=== PATIENT | male | born 1985 | race Caucasian/White ===

== ENCOUNTER 2016-07-29 08:50 | Emergency (ER) | payer OTHER ==
--- NOTE | 2016-07-29 10:22 | DIAGNOSTIC IMAGING REPORT ---
PROCEDURE: CT HEAD WITHOUT CONTRAST INDICATION: SEIZURE TECHNIQUE: Axial CT images were acquired through the head. Coronal and sagittal reformations were created. COMPARISON: None. FINDINGS: No intracranial hemorrhage or extraaxial fluid collections. Ventricles are normal in size, shape and position. There is no mass, mass effect or midline shift. The snyder-white matter differentiation is normal. There is no edema. The calvarium is intact. The paranasal sinuses and mastoid air cells are normally aerated. The extracranial soft tissues and orbits are normal. IMPRESSION: 1. No CT evidence of acute intracranial process. 2. Findings discussed with Gregg at 10:[address] scans at this facility use dose modulation, iterative reconstruction, and/or weight-based dosing when appropriate to reduce radiation dose to as low as reasonably achievable.
--- NOTE | 2016-07-29 10:42 | ED ORDER SUMMARY ---
..... Patient: KRISTI KLINE OrderSheet [facility] VisitID: [id number] [place] [address] 31y, M Registration Date/Time: 07/29/2016 ORDER SHEET Weight: 81.6 kg (stated) Allergies: None GENERAL ORDERS: Airway Traffic Controller (Continuous) (08:55 07/29/2016 JBoardley R.N. per protocol) (8:55 JBoardley R.N.) CBC w Diff Urgent (08:55 07/29/2016 JBoardley R.N. per protocol) (Ack 8:56 KHoerner) (9:10 JBoardley R.N.) BMP Urgent (08:55 07/29/2016 JBoardley R.N. per protocol) (Ack 8:56 KHoerner) (9:10 JBoardley R.N.) (Cancelled: Other9:17 [place] WOODWARD) UA-Culture if indicated Urgent (08:55 07/29/2016 JBoardley R.N. per protocol) (Ack 8:56 KHoerner) (9:44 LNations ER Tech1) Urine Drug Screen Urgent (08:55 07/29/2016 JBoardley R.N. per protocol) (Ack 8:56 KHoerner) (9:44 LNations ER Tech1) POC Glucose (08:55 07/29/2016 JBoardley R.N. per protocol) (Ack 8:56 KHoerner) (9:01 JBoardley R.N.) EKG - ER Stat (08:55 07/29/2016 JBoardley R.N. per protocol) (Ack 8:56 KHoerner) (9:01 JBoardley R.N.) CMP Urgent (09:07/29/2016 [place] WOODWARD) (Ack 9:18 KHoerner) (9:56 JBoardley R.N.) CT Head wo Cont Urgent (09:18 07/29/2016 [place] WOODWARD) (Ack 9:20 KHoerner) (9:56 JBoardley R.N.) Amylase Urgent (09:18 07/29/2016 [place] WOODWARD) (Ack 9:20 KHoerner) (9:56 JBoardley R.N.) Lipase Urgent (09:18 07/29/2016 [place] WOODWARD) (Ack 9:20 SINCEREoerner) (9:56 JBoardley R.N.) CPK Urgent (09:18 07/29/2016 [place] WOODWARD) (Ack 9:20 SINCEREoerner) (9:56 JBoardley R.N.) Troponin-I Urgent (09:18 07/29/2016 [place] WOODWARD) (Ack 9:20 KHoerner) (9:56 JBoardley R.N.) Seizure Precautions (09:18 07/29/2016 [place] WOODWARD) (Ack 9:21 JBoardley R.N.) (9:29 JBoardley R.N.) Ethyl Alcohol Urgent (09:50 07/29/2016 [place] WOODWARD) (Ack 9:51 KHoerner) (9:56 JBoardley R.N.) MEDICATION ORDERS: Keppra PO 500 mg (NOW) (10:39 07/29/2016 [place] WOODWARD) (Ack 10:40 JBoardley R.N.) (10:43 JBoardley R.N.) IV FLUIDS: IV Saline Lock (08:55 07/29/2016 JBoardley R.N. per protocol) (Ack 9:01 JBoardley R.N.) (9:10 JBoardley R.N.) IV NS : initial bolus none -, then 1000 mL/hr for X1 (NOW) (09:10 07/29/2016 JBoardley R.N. per protocol) (9:11 JBoardley R.N.) ORDER SHEET NOTES: [Electronically signed by Omid Alvarez R.N. (10:57 07/29/2016)] [Electronically signed by Dago Escobedo MD (12:13 07/29/2016)] [Electronically locked/signed by Omid Alvarez R.N. (10:57 07/29/2016)]
--- NOTE | 2016-07-29 10:42 | ED NURSING NOTES ---
Clinical Report - Nurses [facility] [address] [place] [address] 07/29/2016 8:51 [facility]: [id number] TRIAGE Triage time 08:49. Acuity: LEVEL 3. Chief Complaint: DECREASED RESPONSIVENESS. 08:51 07/29/16. 08:51 07/29/16. Alert. No acute distress. SEPSIS SCREEN: Sepsis Screen. Negative (no infection suspected/documented). LAKISHA COMA SCORE: Drew Coma Scale: 15- eyes open spontaneously (4); best verbal response- oriented x 4 (5); best motor response- obeys commands (6). --08:53 Omid Alvarez R.N. 08:48 07/29/16. BP: 150/77. HR: 114. RR: 16. O2 saturation: 100% on room air. Temp: 98 F (oral). Pain level now: 0/10. --08:53 Omid Alvarez R.N. ( EMS states that pt has possible 4 min seizure witnessed by girlfriend and son. History of seizure when pt was a child.). --08:57 Omid Alvarez R.N. ( Pt states that pt took two of sons concerta to help stay awake for playing video games.). --09:16 Omid Alvarez R.N. Weight: 81.6 kg stated. Height/Length: 70 inches Per Patient. BMI: 25.8. --08:50 Omid Alvarez R.N. Medications None. --08:52 Omid Alvarez R.N. Medication/allergy information source: the patient. --08:53 Omid Alvarez R.N. Allergies None. --08:52 Omid Alvarez R.N. History Primary physician (NONE). 08:51 07/29/16. This started today 30 min ago. Treatment FARM OPERATOR: None. PAST MEDICAL HX: Immunizations not up to date. SOCIAL HX: Current every day light tobacco smoker (cigarette)- less than 1/2 a pack per day. Regular alcohol use; consumes two beers a day. ("Couple beers a day"). History of heavy drug use: marijuana. Recently used drugs yesterday. No infectious disease exposure. ABUSE ASSESSMENT: No report of abuse. FALL RISK ASSESSMENT: Fall risk assessment completed. No fall risk identified. NUTRITIONAL RISK ASSESSMENT: The nutritional risk assessment revealed no deficiencies. FUNCTIONAL ASSESSMENT: Functional assessment: no impairments noted. LEARNING NEEDS ASSESSMENT: The learning needs assessment revealed no barriers. SKIN INTEGRITY ASSESSMENT: Skin integrity risk assessment completed. No skin integrity risk identified. --08:53 Omid Alvarez R.N. Treatment FARM OPERATOR: See EMS report. BP: 130/90. HR: 136. RR: 18. --08:57 Omid Alvarez R.N. PROBLEMS: Seizure. --08:52 Omid Alvarez R.N. Nephrolithiasis. --08:52 Omid Alvarez R.N. ADDITIONAL SURGERIES: Lithotripsy. --08:53 Omid Alvarez R.N. Assessment 08:51 07/29/16. --08:53 Omid Alvarez R.N. Interventions 08:51 07/29/16. 08:51 07/29/16. ID and allergy band on patient. To treatment room. --08:53 Omid Alvarez R.N. PHYSICAL ASSESSMENT 08:53 07/29/16. To room via stretcher. Baseline functional status: usually alert, oriented x4 and cooperative. GENERAL / NEURO / PSYCH: Awake. Oriented X 4. Alert. Appears in no acute distress. Speech normal. Mood/affect normal. Moves all extremities equally. No motor deficit. No sensory deficit. RESPIRATORY: Respirations not labored. CVS: Capillary refill less than 2 seconds. SKIN: Skin is warm and dry. --08:53 Omid Alvarez R.N. NURSING PROGRESS NOTES 08:54 07/29/16. The plan of care for this patient has been created. steel plate caulker, pulse oximeter and NIBP monitor placed on patient; monitor alarms on. Patient gowned. Head of bed elevated. Reassurance given. Seizure precautions initiated: side rails up x4 and padded, suction and O2 at bedside, patient in view of nurse's station and call malik in reach. Two patient identifiers checked. Call light placed in reach. Side rails up x 2. Bed placed in lowest position. Brakes of bed on. Brakes of chair on. --08:54 Omid Alvarez R.N. 08:54 07/29/16. Patient ready for evaluation- chart flagged and notification provided. --08:54 Omid Alvarez R.N. 08:55 07/29/16. Cardiac rhythm: sinus tachycardia; (118). --08:55 Omid Alvarez R.N. 09:00 07/29/2016 Site #1 started via IV in the left antecubital space with an 20g angiocath, with aseptic technique and good blood return; one attempt. Blood drawn: rainbow set. Labeled in the presence of the patient and sent to the lab. Saline lock flushed with 10 mL saline. --09:10 Omid Alvarez R.N. 09:01 07/29/16. Finger stick glucose: 134; ordered; performed by nurse; result shown to the ED physician. --09:01 Omid Alvarez R.N. 09:04 07/29/16. EKG time: (906). EKG was ordered, performed by a tech and shown to the ED physician. --09:04 Omid Alvarez R.N. 09:06 07/29/2016 Started bag #1 1000 mL IV Fluids IV NS (Saline); at 1000 mL/hr over 1 hour(s) via site #1. Allergies verified and confirmed 5 rights. IV patency established. IV site checked: no pain, redness, or swelling. IV flushed thoroughly pre- and post-medication administration. Completed per protocol. --09:11 Omid Alvarez R.N. ( seizure pads applied to bed.). --09:27 Meggan Mckinnon ER Tech1 Patient transported to CT by stretcher. --09:27 Meggan Mckinnon ER Tech1 09:28 07/29/16. Patient transported to CT by stretcher with tech. --09:28 Omid Alvarez R.N. 09:28 07/29/16. ( Pt is unable to provide urine). --09:29 Omid Alvarez R.N. late entry -09:45. Patient returned from CT by stretcher with [employer]. --09:57 Omid Alvarez R.N. 09:57 07/29/16. Cardiac rhythm: normal sinus rhythm; (83). --09:57 Omid Alvarez R.N. 09:57 07/29/16. BP: 124/80. HR: 94. RR: 12. O2 saturation: 100% on room air. --09:58 Omid Alvarez R.N. 09:58 07/29/16. Cardiac rhythm: normal sinus rhythm. --09:58 Omid Alvarez R.N. 10:35 07/29/16. BP: 126/82. HR: 87. RR: 14. O2 saturation: 100% on room air. --10:35 Omid Alvarez R.N. 10:23 07/29/2016 IV Fluids IV NS Discontinued: bag #1 infused upon discharge. Total amount infused: 1000 mL. --10:48 Omid Alvarez R.N. 10:23 07/29/16. Patient and family informed about reason for wait and about plan of care. --10:23 Omid Alvarez R.N. 10:23 07/29/16. Patient waiting for lab and CT results. --10:23 Omid Alvarez R.N. 10:24 07/29/16. Cardiac rhythm: normal sinus rhythm; (80). --10:24 Omid Alvarez R.N. 10:35 07/29/16. --10:35 Omid Alvarez R.N. 10:35 07/29/16. Cardiac rhythm: normal sinus rhythm. --10:35 Omid Alvarez R.N. 10:38 07/29/2016 Keppra (LevETIRAcetam) PO 500 mg given. Allergies verified and confirmed 5 rights. --10:43 Omid Alvarez R.N. DISPOSITION / DISCHARGE 10:42 07/29/2016 Site #1 removed upon discharge. Catheter intact. Bandage applied. --10:47 Omid Alvarez R.N. 10:47 07/29/16. Condition at departure: improved. The goals identified in the patient's plan of care were met. No learning barriers present. Discharge instructions provided and reviewed with the patient. Reviewed warnings. Reviewed medication(s). Treatments reviewed. Patient and sap architect verbalized understanding. Written instructions provided in Irish. The patient was discharged by the physician. He was discharged home and accompanied by family. He left the Emergency Department ambulatory and via private vehicle. Family member driving. FALL RISK ASSESSMENT: Fall risk assessment completed. No fall risk identified. --10:47 Omid Alvarez R.N. 10:46 07/29/16. BP: 123/78. HR: 81. RR: 14. O2 saturation: 99% on room air. Temp: 98.1 F (oral). --10:47 Omid Alvarez R.N. 10:47 07/29/16. Departure time: 10:47. --10:47 Omid Alvarez R.N. Locked/Released at 07/29/2016 10:57 by Omid Alvarez R.N.
--- NOTE | 2016-07-29 10:42 | ED ORDER SUMMARY ---
..... Patient: KRISTI KLINE OrderSheet [facility] VisitID: [id number] [place] [address] 31y, M Registration Date/Time: 07/29/2016 ORDER SHEET Weight: 81.6 kg (stated) Allergies: None GENERAL ORDERS: Car Sales Representative (Continuous) (08:55 07/29/2016 JBoardley R.N. per protocol) (8:55 JBoardley R.N.) CBC w Diff Urgent (08:55 07/29/2016 JBoardley R.N. per protocol) (Ack 8:56 KHoerner) (9:10 JBoardley R.N.) BMP Urgent (08:55 07/29/2016 JBoardley R.N. per protocol) (Ack 8:56 KHoerner) (9:10 JBoardley R.N.) (Cancelled: Other9:17 [place] WOODWARD) UA-Culture if indicated Urgent (08:55 07/29/2016 JBoardley R.N. per protocol) (Ack 8:56 KHoerner) (9:44 LNations ER Tech1) Urine Drug Screen Urgent (08:55 07/29/2016 JBoardley R.N. per protocol) (Ack 8:56 KHoerner) (9:44 LNations ER Tech1) POC Glucose (08:55 07/29/2016 JBoardley R.N. per protocol) (Ack 8:56 KHoerner) (9:01 JBoardley R.N.) EKG - ER Stat (08:55 07/29/2016 JBoardley R.N. per protocol) (Ack 8:56 KHoerner) (9:01 JBoardley R.N.) CMP Urgent (09:07/29/2016 [place] WOODWARD) (Ack 9:18 KHoerner) (9:56 JBoardley R.N.) CT Head wo Cont Urgent (09:18 07/29/2016 [place] WOODWARD) (Ack 9:20 KHoerner) (9:56 JBoardley R.N.) Amylase Urgent (09:18 07/29/2016 [place] WOODWARD) (Ack 9:20 KHoerner) (9:56 JBoardley R.N.) Lipase Urgent (09:18 07/29/2016 [place] WOODWARD) (Ack 9:20 SINCEREoerner) (9:56 JBoardley R.N.) CPK Urgent (09:18 07/29/2016 [place] WOODWARD) (Ack 9:20 SINCEREoerner) (9:56 JBoardley R.N.) Troponin-I Urgent (09:18 07/29/2016 [place] WOODWARD) (Ack 9:20 KHoerner) (9:56 JBoardley R.N.) Seizure Precautions (09:18 07/29/2016 [place] WOODWARD) (Ack 9:21 JBoardley R.N.) (9:29 JBoardley R.N.) Ethyl Alcohol Urgent (09:50 07/29/2016 [place] WOODWARD) (Ack 9:51 KHoerner) (9:56 JBoardley R.N.) MEDICATION ORDERS: Keppra PO 500 mg (NOW) (10:39 07/29/2016 [place] WOODWARD) (Ack 10:40 JBoardley R.N.) (10:43 JBoardley R.N.) IV FLUIDS: IV Saline Lock (08:55 07/29/2016 JBoardley R.N. per protocol) (Ack 9:01 JBoardley R.N.) (9:10 JBoardley R.N.) IV NS : initial bolus none -, then 1000 mL/hr for X1 (NOW) (09:10 07/29/2016 JBoardley R.N. per protocol) (9:11 JBoardley R.N.) ORDER SHEET NOTES: [Electronically signed by Omid Alvarez R.N. (10:57 07/29/2016)] [Electronically signed by Dago Escobedo MD (12:13 07/29/2016)] [Electronically locked/signed by Omid Alvarez R.N. (10:57 07/29/2016)]
--- NOTE | 2016-07-29 10:42 | ED CLINICAL REPORT ---
Clinical Report - Physicians/Mid Levels [facility] [address] [place] [address] 07/29/2016 8:51 Patient: KRISTI KLINE Time Seen: 09:14. Arrived- By private vehicle. Historian- patient. HISTORY OF PRESENT ILLNESS Chief Complaint: SINGLE SEIZURE. This occurred today. The patient has recovered. Seizure was witnessed. Seizure activity lasted minutes (for about 4 minutes). Location of injuries- tongue. He lost consciousness. Generalized motor activity observed. No incontinence or apnea noted. No post-ictal symptoms. There has been recent sleep deprivation. He has had light alcohol consumption recently (beer). Last drink was less than 24 hours ago. Patient reported to nursing staff that last night he took some of his son's Concerta to help him stay awake while he was "ester.". Similar symptoms previously: Once. REVIEW OF SYSTEMS No chills, fever, sweats, calf pain or chest pain. No cough, difficulty breathing, pedal edema, palpitations or abdominal pain. No black stools, bloody stools, constipation, diarrhea or nausea. No vomiting, urinary problems, headache or numbness. All systems otherwise negative, except as recorded above. PAST HISTORY ( PCP - [facility]). Problems: Nephrolithiasis. Seizure. Abrasion(s). Oral Laceration. Contusion. Sprain. Additional Surgeries: Kidney stone extraction. Lithotripsy. Medications: None. Allergies: None. SOCIAL HISTORY Current every day light tobacco smoker (cigarette)- less than 1/2 a pack per day. Regular alcohol use; consumes two beers a day. History of heavy drug use: marijuana. Recently used drugs yesterday. The patient lives with spouse. FAMILY HISTORY Family medical history is unknown due to adoption. ADDITIONAL NOTES The nursing notes have been reviewed. PHYSICAL EXAM Vital Signs: 07/29/2016 08:48 BP: 150/77. HR: 114. RR: 16. O2 saturation: 100%. Temp: 98 F. Pain level now: 0/10. Have been reviewed. Appearance: Alert. Eyes: Pupils equal, round and reactive to light. No nystagmus. ENT: Tongue: multiple small abrasions of the right and left side of the tongue. Moist mucous membranes. Pharynx normal. Neck: Normal inspection. Neck supple. CVS: Tachycardia. Heart sounds normal. Respiratory: No respiratory distress. Breath sounds normal. Abdomen: Soft and nontender. No organomegaly. Back: Normal inspection. Skin: Skin warm and dry. Normal skin color. No rash. Normal skin turgor. Extremities: Extremities exhibit normal ROM. No calf tenderness. No lower extremity edema. Neuro: Alert. Oriented X 3. Mood/affect normal. Speech normal. Cranial nerves normal (as tested). No cerebellar findings. No motor deficit. No sensory deficit. LABS, X-RAYS, AND EKG EKG: Rate: 109. Incomplete RBBB. Prior EKG unavailable. The study has been independently viewed by me. CT Head: Normal study. The study was interpreted contemporaneously by me and discussed with the radiologist. Laboratory Tests: UA-Culture if indicated: (GRACIA: 07/29/2016 09:40) ( [facility] 07/29/2016 10:08) Final results Test Result Flag Units (Reference) URINE COLOR YELLOW URINE APPEARANCE CLEAR URINE GLUCOSE NEGATIVE (NEGATIVE) URINE BILIRUBIN NEGATIVE (NEGATIVE) URINE KETONE TRACE (NEGATIVE) URINE SPECIFIC GRAVITY >= 1.030 (1.010-1.030) URINE PH 6.0 (5.0-8.0) URINE PROTEIN 2+ (NEGATIVE) URINE UROBILINOGEN 1.0 EU/dL (0.2-1.0) URINE NITRITE NEGATIVE (NEGATIVE) URINE BLOOD 3+ (NEGATIVE) URINE LEUK ESTERASE NEGATIVE (NEGATIVE) URINE RBC 10-25 rbc/hpf (0-1) URINE WBC 0-1 wbc/hpf (0-1) URINE EPITHELIAL CELLS 0-1 EPI/hpf (0-5) URINE BACTERIA TRACE (<1+) (NONE SEEN) URINE COMMENT CULT NOT INDICATED 1-3 HYALINE CASTS/lpfRARE SPERM SEENURINE CULTURES ARE SET-UP BASED ON THE FOLLOWING CRITERIA:POSITIVE NITRITEPOSITIVE LEUKOCYTE ESTERASEGREATER THAN 10 WHITE BLOOD CELLSMODERATE (2+) OR GREATER BACTERIA CBC w Diff: (GRACIA: 07/29/2016 09:05) ( [facility] 07/29/2016 09:25) Final results Test Result Flag Units (Reference) WHITE BLOOD COUNT 10.8 K/uL (4.5-11.5) RED BLOOD COUNT 5.21 M/uL (4.50-5.90) HEMOGLOBIN 16.8 gm/dL (13.5-17.5) HEMATOCRIT 48.5 % (41.0-53.0) MEAN CELL VOLUME 93 fL (80-100) MEAN CORPUSCULAR HGB 32 pg (26-34) MEAN CORPUSCULAR HGB CONC 35 g/dL (31-37) RED CELL DISTRIBUTION WIDTH 13.6 % (11.6-14.8) PLATELET COUNT 220 K/uL (150-400) NEUTROPHIL % 78.8 H % (50-75) LYMPH % 12.8 L % (25-40) MONO % 7.8 % (3-14) EOSINOPHIL % 0.4 % (0-4) BASOPHIL % 0.2 % (0-2) Ethyl Alcohol: (GRACIA: 07/29/2016 09:05) ( MsgRcvd 07/29/2016 10:18) Final results Test Result Flag Units (Reference) ETHYL ALCOHOL < 3.0 L mg/dL (3-10) Urine Drug Screen: (GRACIA: 07/29/2016 09:40) ( MsgRcvd 07/29/2016 10:11) Final results Test Result Flag Units (Reference) AMPHETAMINE/METHAMPHETAMINE NEGATIVE (NEGATIVE) BARBITURATE NEGATIVE (NEGATIVE) BENZODIAZEPINE NEGATIVE (NEGATIVE) CANNABINOID POSITIVE H (NEGATIVE) COCAINE NEGATIVE (NEGATIVE) ECSTASY NEGATIVE (NEGATIVE) METHADONE NEGATIVE (NEGATIVE) OPIATE NEGATIVE (NEGATIVE) The urine drug screen is a qualitative screening test fordrug overdose and abuse. All screen results should beconsidered as presumptive.Drugs screened for are as follows:BenzodiazepinesCocaineAmphetamines/MetamphetaminesTHC (Tetrahydrocannabinol)OpiatesBarbituratesEcstasyMethadonePositive results are unconfirmed. For confirmation, notifythe lab for the specimen to be sent to the reference lab.All confirmations must be performed by a differentmethodology.The ingestion of natural herbal and plant productscontaining Ephedra/Ephedra metabolites can produce in urineone or more substances capable of cross reacting withamphetamine/methamphetamine immunoassays. These testsprovide a preliminary result only. A more specificalternative chemical method must be used to obtain aconfirmed analytical result. CMP: (GRACIA: 07/29/2016 09:05) ( MsgRcvd 07/29/2016 10:10) IP Test Result Flag Units (Reference) GLUCOSE 135 H mg/dL (70-110) BUN 12 mg/dL (7-18) CREATININE 1.3 mg/dL (0.6-1.3) Estimated GFR >60 mL/min Estimated GFR- >60 mL/min Note: Persistent reduction over 3 months in eGFR<60 mL/min/1.73 m2 defines CKD. Patients with eGFR values>=60 mL/min/1.73 m2 may also have CKD if evidence ofpersistent proteinuria. Additional information may be foundat www.kidney.org. SODIUM 142 mmol/L (136-145) POTASSIUM 3.5 mmol/L (3.5-5.1) CHLORIDE 102 mmol/L (98-107) CARBON DIOXIDE 24 mmol/L (21-32) CALCIUM 9.5 mg/dL (8.5-10.1) TOTAL PROTEIN 7.9 g/dL (6.4-8.2) ALBUMIN 4.6 g/dL (3.3-5.0) BILIRUBIN, TOTAL 0.5 mg/dL (0.0-1.0) ALKALINE PHOSPHATASE 80 U/L (46-116) AST (SGOT) 24 U/L (15-37) ALT (SGPT) 39 U/L (12-78) LIPASE 78 U/L (73-393) AMYLASE 45 U/L (25-115) CPK 295 H U/L (24-260) TROPONIN I <0.05 L ng/mL (0.00-1.5) TROPONIN REFERENCE RANGE:<0.1 NEGATIVE0.1-1.5 INDETERMINANT>1.5 POSITIVE . PROGRESS AND PROCEDURES Course of Care: Patient is stable. Patient/family counseled. Old medical records reviewed. Disposition: Discharged. Condition: stable. CLINICAL IMPRESSION Microscopic hematuria Generalized seizure associated with sleep deprivation. INSTRUCTIONS No driving or operating machinery until released. Rest. (do not take medications that were prescribed for others as discussed.). Warnings: Further evaluation is necessary. TAKE SEIZURE MEDICATION INSTRUCTED. GENERAL WARNINGS: Return or contact your physician immediately if your condition worsens or changes unexpectedly, if not improving as expected, or if other problems arise. Prescription Medications: Keppra 500 mg: take 1 tablet orally every 12 hours. Dispense thirty (30). No refills. Substitution is permissible. Follow-up: Follow up with a neurologist- as recommended by your primary care physician. Understanding of the discharge instructions verbalized by patient. Follow-up with: [facility], , , [address], [facility], [id number] Follow up in four days. Call for an appointment. (Electronically signed by Dago Escobedo MD 07/29/2016 12:13)
--- NOTE | 2016-07-29 10:42 | ED NURSING NOTES ---
Clinical Report - Nurses [facility] [address] [place] [address] 07/29/2016 8:51 [id number] Triage time 08:49. Acuity: LEVEL 3. Chief Complaint: DECREASED RESPONSIVENESS. 08:51 07/29/16. 08:51 07/29/16. Alert. No acute distress. SEPSIS SCREEN: Sepsis Screen. Negative (no infection suspected/documented). LAKISHA COMA SCORE: [place] Coma Scale: 15- eyes open spontaneously (4); best verbal response- oriented x 4 (5); best motor response- obeys commands (6). --08:53 Omid Alvarez R.N. 08:48 07/29/16. BP: 150/77. HR: 114. RR: 16. O2 saturation: 100% on room air. Temp: 98 F (oral). Pain level now: 0/10. --08:53 Omid Alvarez R.N. ( EMS states that pt has possible 4 min seizure witnessed by girlfriend and son. History of seizure when pt was a child.). --08:57 Omid Alvarez R.N. ( Pt states that pt took two of sons concerta to help stay awake for playing video games.). --09:16 Omid Alvarez R.N. Weight: 81.6 kg stated. Height/Length: 70 inches Per Patient. BMI: 25.8. --08:50 Omid Alvarez R.N. Medications None. --08:52 Omid Alvarez R.N. Medication/allergy information source: the patient. --08:53 Omid Alvarez R.N. Allergies None. --08:52 Omid Alvarez R.N. History Primary physician (NONE). 08:51 07/29/16. This started today 30 min ago. Treatment JAW SKINNER: None. PAST MEDICAL HX: Immunizations not up to date. SOCIAL HX: Current every day light tobacco smoker (cigarette)- less than 1/2 a pack per day. Regular alcohol use; consumes two beers a day. ("Couple beers a day"). History of heavy drug use: marijuana. Recently used drugs yesterday. No infectious disease exposure. ABUSE ASSESSMENT: No report of abuse. FALL RISK ASSESSMENT: Fall risk assessment completed. No fall risk identified. NUTRITIONAL RISK ASSESSMENT: The nutritional risk assessment revealed no deficiencies. FUNCTIONAL ASSESSMENT: Functional assessment: no impairments noted. LEARNING NEEDS ASSESSMENT: The learning needs assessment revealed no barriers. SKIN INTEGRITY ASSESSMENT: Skin integrity risk assessment completed. No skin integrity risk identified. --08:53 Omid Alvarez R.N. Treatment JAW SKINNER: See EMS report. BP: 130/90. HR: 136. RR: 18. --08:57 Omid Alvarez R.N. PROBLEMS: Seizure. --08:52 Omid Alvarez R.N. Nephrolithiasis. --08:52 Omid Alvarez R.N. ADDITIONAL SURGERIES: Lithotripsy. --08:53 Omid Alvarez R.N. Assessment 08:51 07/29/16. --08:53 Omid Alvarez R.N. Interventions 08:51 07/29/16. 08:51 07/29/16. ID and allergy band on patient. To treatment room. --08:53 Omid Alvarez R.N. PHYSICAL ASSESSMENT 08:53 07/29/16. To room via stretcher. Baseline functional status: usually alert, oriented x4 and cooperative. GENERAL / NEURO / PSYCH: Awake. Oriented X 4. Alert. Appears in no acute distress. Speech normal. Mood/affect normal. Moves all extremities equally. No motor deficit. No sensory deficit. RESPIRATORY: Respirations not labored. CVS: Capillary refill less than 2 seconds. SKIN: Skin is warm and dry. --08:53 Omid Alvarez R.N. NURSING PROGRESS NOTES 08:54 07/29/16. The plan of care for this patient has been created. marble worker, pulse oximeter and NIBP monitor placed on patient; monitor alarms on. Patient gowned. Head of bed elevated. Reassurance given. Seizure precautions initiated: side rails up x4 and padded, suction and O2 at bedside, patient in view of nurse's station and call malik in reach. Two patient identifiers checked. Call light placed in reach. Side rails up x 2. Bed placed in lowest position. Brakes of bed on. Brakes of chair on. --08:54 Omid Alvarez R.N. 08:54 07/29/16. Patient ready for evaluation- chart flagged and notification provided. --08:54 Omid Alvarez R.N. 08:55 07/29/16. Cardiac rhythm: sinus tachycardia; (118). --08:55 Omid Alvarez R.N. 09:00 07/29/2016 Site #1 started via IV in the left antecubital space with an 20g angiocath, with aseptic technique and good blood return; one attempt. Blood drawn: rainbow set. Labeled in the presence of the patient and sent to the lab. Saline lock flushed with 10 mL saline. --09:10 Omid Alvarez R.N. 09:01 07/29/16. Finger stick glucose: 134; ordered; performed by nurse; result shown to the ED physician. --09:01 Omid Alvarez R.N. 09:04 07/29/16. EKG time: (906). EKG was ordered, performed by a tech and shown to the ED physician. --09:04 Omid Alvarez R.N. 09:06 07/29/2016 Started bag #1 1000 mL IV Fluids IV NS (Saline); at 1000 mL/hr over 1 hour(s) via site #1. Allergies verified and confirmed 5 rights. IV patency established. IV site checked: no pain, redness, or swelling. IV flushed thoroughly pre- and post-medication administration. Completed per protocol. --09:11 Omid Alvarez R.N. ( seizure pads applied to bed.). --09:27 Meggan Mckinnon ER Tech1 Patient transported to CT by stretcher. --09:27 Meggan Mckinnon ER Tech1 09:28 07/29/16. Patient transported to CT by stretcher with tech. --09:28 Omid Alvarez R.N. 09:28 07/29/16. ( Pt is unable to provide urine). --09:29 Omid Alvarez R.N. late entry -09:45. Patient returned from CT by stretcher with [employer]. --09:57 Omid Alvarez R.N. 09:57 07/29/16. Cardiac rhythm: normal sinus rhythm; (83). --09:57 Omid Alvarez R.N. 09:57 07/29/16. BP: 124/80. HR: 94. RR: 12. O2 saturation: 100% on room air. --09:58 Omid Alvarez R.N. 09:58 07/29/16. Cardiac rhythm: normal sinus rhythm. --09:58 Omid Alvarez R.N. 10:35 07/29/16. BP: 126/82. HR: 87. RR: 14. O2 saturation: 100% on room air. --10:35 Omid Alvarez R.N. 10:23 07/29/2016 IV Fluids IV NS Discontinued: bag #1 infused upon discharge. Total amount infused: 1000 mL. --10:48 Omid Alvarez R.N. 10:23 07/29/16. Patient and family informed about reason for wait and about plan of care. --10:23 Omid Alvarez R.N. 10:23 07/29/16. Patient waiting for lab and CT results. --10:23 Omid Alvarez R.N. 10:24 07/29/16. Cardiac rhythm: normal sinus rhythm; (80). --10:24 Omid Alvarez R.N. 10:35 07/29/16. --10:35 Omid Alvarez R.N. 10:35 07/29/16. Cardiac rhythm: normal sinus rhythm. --10:35 Omid Alvarez R.N. 10:38 07/29/2016 Keppra (LevETIRAcetam) PO 500 mg given. Allergies verified and confirmed 5 rights. --10:43 Omid Alvarez R.N. DISPOSITION / DISCHARGE 10:42 07/29/2016 Site #1 removed upon discharge. Catheter intact. Bandage applied. --10:47 Omid Alvarez R.N. 10:47 07/29/16. Condition at departure: improved. The goals identified in the patient's plan of care were met. No learning barriers present. Discharge instructions provided and reviewed with the patient. Reviewed warnings. Reviewed medication(s). Treatments reviewed. Patient and communication professor verbalized understanding. Written instructions provided in Faroese. The patient was discharged by the physician. He was discharged home and accompanied by family. He left the Emergency Department ambulatory and via private vehicle. Family member driving. FALL RISK ASSESSMENT: Fall risk assessment completed. No fall risk identified. --10:47 Omid Alvarez R.N. 10:46 07/29/16. BP: 123/78. HR: 81. RR: 14. O2 saturation: 99% on room air. Temp: 98.1 F (oral). --10:47 Omid Alvarez R.N. 10:47 07/29/16. Departure time: 10:47. --10:47 Omid Alvarez R.N. Locked/Released at 07/29/2016 10:57 by Omid Alvarez R.N.
--- NOTE | 2016-07-29 12:13 | ED MAR SUMMARY ---
..... Medication Administration Record [facility] [address] [place] [address] Patient: KRISTI KLINE Visit ID: [id number] 31y, M Weight: 81.6 kg Height/Length: 70 in BMI: 25.8 ALLERGIES: None Start 09:06 07/29/2016 Omid Alvarez R.N., Stop 10:23 07/29/2016 Omid Alvarez R.N. Medication Administered: IV NS (SALINE), Dose: IV Fluids over 1 hour(s), Rate: 1000 mL/hr, Dispensed: 1000 mL bag, Site: #1 left AC. Medication Ordered: IV NS : initial bolus none -, then 1000 mL/hr for X1 (NOW). Given 10:38 07/29/2016 Omid Alvarez R.N. Medication Administered: KEPPRA [PO] (LEVETIRACETAM), Dose: 500 mg PO. Medication Ordered: Keppra PO 500 mg (NOW).
--- NOTE | 2016-07-29 12:13 | ED MAR SUMMARY ---
..... Medication Administration Record [facility] [address] [place] [address] Patient: KRISTI KLINE Visit ID: [id number] 31y, M Weight: 81.6 kg Height/Length: 70 in BMI: 25.8 ALLERGIES: None Start 09:06 07/29/2016 Omid Alvarez R.N., Stop 10:23 07/29/2016 Omid Alvarez R.N. Medication Administered: IV NS (SALINE), Dose: IV Fluids over 1 hour(s), Rate: 1000 mL/hr, Dispensed: 1000 mL bag, Site: #1 left AC. Medication Ordered: IV NS : initial bolus none -, then 1000 mL/hr for X1 (NOW). Given 10:38 07/29/2016 Omid Alvarez R.N. Medication Administered: KEPPRA [PO] (LEVETIRACETAM), Dose: 500 mg PO. Medication Ordered: Keppra PO 500 mg (NOW).
--- NOTE | 2016-07-29 12:13 | ED DISCHARGE INSTRUCTIONS ---
Patient: KRISTI KLINE General Instructions [facility] VisitID: [id number] [address], [place] [address] 31y, M Registration Date/Time: 07/29/2016 Microscopic hematuria Generalized seizure associated with sleep deprivation. INSTRUCTIONS No driving or operating machinery until released. Rest. (do not take medications that were prescribed for others as discussed.). Warnings: Further evaluation is necessary. TAKE SEIZURE MEDICATION INSTRUCTED. GENERAL WARNINGS: Return or contact your physician immediately if your condition worsens or changes unexpectedly, if not improving as expected, or if other problems arise. Prescription Medications: Keppra 500 mg: take 1 tablet orally every 12 hours. Dispense thirty (30). No refills. Substitution is permissible. Follow-up: Follow up with a neurologist- as recommended by your primary care physician. Understanding of the discharge instructions verbalized by patient. Follow-up with: [facility], , , [address], , [place], [id number] Follow up in four days. Call for an appointment. ADDITIONAL INFORMATION Seizure:New Onset [Unknown Cause, Adult] You have had a seizure today. This results from a burst of electrical activity in the brain. A seizure can be due to many causes. It is often not possible to determine the exact cause of a seizure from a single exam and further testing may be needed. Having one seizure does not mean that you will continue to have seizures. However, until the cause of your seizure is known, it is best to assume that another seizure is possible. Home Care: For This Seizure: Since seizures are not predictable, you must avoid doing anything that might cause danger to you or others if you have another one. Therefore, do not drive a car, ride a bike or operate dangerous equipment, do not take a bath alone (use a shower instead), and do not swim alone until your doctor says that you are no longer in danger of having another seizure. Tell your close friends and relatives about your seizure and teach them what to do for you if it happens again. If you were prescribed a medicine to prevent seizures, take it exactly as directed. It does not work when taken on an "as needed" basis. Missing doses will increase the risk of having another seizure. For Future Seizures: If You Are Alone: If you feel a seizure coming on, the best thing to do is to lie down on a bed or on the floor with something soft under your head. Lie on your side, not on your back. This will prevent falling and permit drainage of fluid from the mouth to prevent choking. Be sure that you are clear of any objects that might injure you during the seizure. Call for help (911) if there is time. If Someone Is With You: If someone is with you before the seizure, they should help you get in a safe position and call for help (911). They should not try to force anything in your mouth once the seizure has begun. Doing this may cause injury to your teeth or jaw. After a seizure, you may be drowsy or confused. The person should remain with you until you are fully awake again. They should not offer anything to eat or drink during that time. Call 911 or go to the emergency department for further evaluation. Follow Up with your doctor as directed by our staff. Additional tests (brain wave tests or brain scans) may be ordered to help determine the cause of your seizure. Note: For the safety of yourself and others on the road, certain states require that the treating doctor inform the Public Health Department of any adult who is treated for a seizure and is at risk of further seizures. In this case, the Department of Motor Vehicles (DMV) will be notified and a restriction will be placed on your drivers license until a doctor gives you medical clearance to drive again. Contact your treating doctor to find out if your state requires the reporting of patients with a seizures condition. Get Prompt Medical Attention if any of the following occur: Another seizure Fever over 100.4F (38.0C) Unusual irritability, drowsiness or confusion Worsening headache or neck pain Blood In The Urine Blood in the urine ("hematuria") has many possible causes. If it occurs after an injury (such as a car accident or fall), it is most often a sign of bruising to the kidney or bladder. Common medical causes of blood in the urine include urinary tract infection, kidney stone, inflammation, tumors, or certain other diseases of the kidney or bladder. Menstruation can cause blood to appear in the urine sample, although it is not coming from the urinary tract. If only a trace amount of blood is present, it will show up on the urine test, even though the urine may be yellow and not pink or red. This may occur with any of the above conditions, as well as heavy exercise or high fever. In this case, your doctor may want to repeat the urine test on another day. This will show if the blood is still present. If so, then other tests can be done to find out the cause. Home Care: If your urine does not appear bloody (pink, brown or red) then you do not need to restrict your activity in any way. If you can see blood in your urine, rest and avoid heavy exertion until your next exam. Do not use aspirin or anti-inflammatory medicine like ibuprofen (Motrin, Advil) or naproxen (Naprosyn, Aleve). These thin the blood and may increase bleeding. Follow Up with your doctor or as advised by our staff. If you were injured and had blood in your urine, you should have a repeat urine test in 1-2 days. Contact your doctor or return to this facility for this test. [NOTE: A radiologist will review any X-rays that were taken. We will notify you of any new findings that may affect your care.] Get Prompt Medical Attention if any of the following occur: Bright red blood or blood clots in the urine (if a new symptom) Weakness, dizziness or fainting New groin, abdominal or back pain Fever of 100.4F (38C) or higher, or as directed by your healthcare provider Repeated vomiting Bleeding from nose, gums or easy bruising You have been given the following additional information: Seizure, New Onset, Unk Cause [Adult] Hematuria No driving or operating machinery until released. Rest. (Electronically signed by Dago Escobedo MD 07/29/2016 12:13)
--- NOTE | 2016-07-29 12:13 | ED MED RECONCILIATION SUMMARY ---
Patient: KRISTI KLINE Medication Reconciliation Report [facility] VisitID: [id number] [address] [place] [address] 31y, M Registration Date/Time: 07/29/2016 Weight: 81.6 kg Height/Length: 70 in. BMI: 25.8 ALLERGIES: None The patient's Home Medications are listed below: NONE. The source(s) of the original Home Medication information: patient The following Medications were given to the patient in the Emergency Department: IV NS IV Fluids bolus 0, then 1000 mL/hr, administered: 07/29/2016 9:06:00 AM Keppra [PO] PO 500 mg, administered: 07/29/2016 10:38:00 AM The following Medications were prescribed to the patient: Keppra 500 mg: take 1 tablet orally every 12 hours. Dispense thirty (30). No refills. Substitution is permissible. -- Dago Escobedo MD
--- NOTE | 2016-07-29 12:13 | ED MED RECONCILIATION SUMMARY ---
Patient: KRISTI KLINE Medication Reconciliation Report [facility] VisitID: [id number] [address] [place] [address] 31y, M Registration Date/Time: 07/29/2016 Weight: 81.6 kg Height/Length: 70 in. BMI: 25.8 ALLERGIES: None The patient's Home Medications are listed below: NONE. The source(s) of the original Home Medication information: patient The following Medications were given to the patient in the Emergency Department: IV NS IV Fluids bolus 0, then 1000 mL/hr, administered: 07/29/2016 9:06:00 AM Keppra [PO] PO 500 mg, administered: 07/29/2016 10:38:00 AM The following Medications were prescribed to the patient: Keppra 500 mg: take 1 tablet orally every 12 hours. Dispense thirty (30). No refills. Substitution is permissible. -- Dago Escobedo MD
== END 2016-07-29 10:47 | disposition home or self-care (01) ==
LOC: ED SRH 08:50
DX: G40.509 Epileptic seizures related to external causes, not intractable, without status epilepticus (principal); R31.29 Other microscopic hematuria; F17.200 Nicotine dependence, unspecified, uncomplicated
CPT/HCPCS: 90004; 90098; 90100; 90616; 90617; 92010; 92235; 92530; 92610; 92760; 92761; 92762; 92763; 92764; 92765; 92766; 92767; 95059

== ENCOUNTER 2016-07-29 16:24 | Emergency (ER) | payer OTHER ==
--- NOTE | 2016-07-29 17:13 | ED CLINICAL REPORT ---
Clinical Report - Physicians/Mid Levels [facility] [address] [place] [address] 07/29/2016 16:25 Patient: KRISTI KLINE Time Seen: 16:35. Arrived- By private vehicle. Historian- patient. HISTORY OF PRESENT ILLNESS Chief Complaint: MUSCLE ACHES. This started today and is still present. It was abrupt in onset and has been constant. (the patient was seen here earlier today after having had a seizure. At time of discharge he was feeling well however now he is saying that he feels sore all over.). REVIEW OF SYSTEMS No chills, fever, sweats, calf pain or chest pain. No cough, difficulty breathing, pedal edema, palpitations or abdominal pain. No constipation, diarrhea, nausea, vomiting or urinary problems. The patient has had muscle aches and fatigue. All systems otherwise negative, except as recorded above. PAST HISTORY Medications: Keppra Oral. Allergies: None. SOCIAL HISTORY Regular alcohol use. Residence: [place]. FAMILY HISTORY Denies family medical history. ADDITIONAL NOTES The nursing notes have been reviewed. PHYSICAL EXAM Vital Signs: 07/29/2016 16:38 BP: 140/76. HR: 75. RR: 20. O2 saturation: 98%. Temp: 98.7 F. Pain level now: 10/10. Have been reviewed. Appearance: Alert. No acute distress. Eyes: Pupils equal, round and reactive to light. ENT: Pharynx normal. Neck: Neck supple. CVS: Normal heart rate and rhythm. Heart sounds normal. Respiratory: No respiratory distress. Breath sounds normal. Abdomen: No visible injury. Soft and nontender. Bowel sounds normal. No organomegaly. No mass. Back: Normal inspection. No CVA tenderness. Skin: Skin warm and dry. Normal skin color. Normal skin turgor. Extremities: Extremities exhibit normal ROM. No calf tenderness. No lower extremity edema. PROGRESS AND PROCEDURES Course of Care: Patient is stable. Patient/family counseled. Old medical records reviewed. Disposition: Discharged. Condition: stable. CLINICAL IMPRESSION Myalgias (status post generalized seizure). INSTRUCTIONS No driving or operating machinery until released. Rest. Drink plenty of fluids. Warnings: Further evaluation is necessary. Your Current Medications: CONTINUE TAKING THE FOLLOWING MEDICATIONS: Keppra Oral. Prescription Medications: Ibuprofen 600 mg tablets: take 1 tablet orally every 6 hours as needed for pain or stiffness. Dispense fifteen (15). No refill. Follow-up: Follow up with a neurologist- as recommended by your primary care physician. Understanding of the discharge instructions verbalized by patient and family. Follow-up with: [facility], , , [address] [facility], [facility], [id number] Follow up in four days. Call for an appointment. (Electronically signed by Dago Escobedo MD 07/30/2016 10:03)
--- NOTE | 2016-07-29 17:13 | ED NURSING NOTES ---
Clinical Report - Nurses [facility] [address] [place] [address] 07/29/2016 16:25 [id number] Triage time 16:38 Jul 29 2016. Acuity: LEVEL 3. Chief Complaint: (All over body pain). SEPSIS SCREEN: Sepsis Screen: negative. Negative (no infection suspected/documented). LAKISHA COMA SCORE: [place] Coma Scale: 15- eyes open spontaneously (4); best verbal response- oriented x 4 (5); best motor response- obeys commands (6). --16:43 Julieth Ruiz 16:38 07/29/16. BP: 140/76. HR: 75. RR: 20. O2 saturation: 98% on room air. Temp: 98.7 F (oral). Pain level now: 03/04. --16:43 Julieth Ruiz. Weight: 74.8 kg stated. Height/Length: 70 inches Per Patient. BMI: 23.7. --16:39 Julieth Ruiz. Medications None. --16:39 Julieth Ruiz. Medication/allergy information source: the patient. --16:43 Julieth Ruiz. Allergies None. --16:39 Julieth Ruiz. History Arrived by private vehicle. Historian: patient. Accompanied by family. Primary physician (none). This started today. ( Patient reports being here earlier for a seizure. He states he went home and he has had an increase in pain since he left. He reports all over body aches.). PAST MEDICAL HX: Immunizations: up-to-date. SOCIAL HX: Light tobacco smoker (cigarette)- less than 1/2 a pack per day. Regular alcohol use; consumes beer. History of drug use: marijuana. ABUSE ASSESSMENT: No report of abuse. --16:43 Julieth Ruiz. PROBLEMS: Hematuria. Nephrolithiasis. Seizure. Abrasion(s). Oral Laceration. Contusion. Sprain. --16:40 Julieth Ruiz. ADDITIONAL SURGERIES: Kidney stone extraction. Lithotripsy. --16:40 Julieth Ruiz. Interventions ID band on patient. To treatment room. --16:43 Julieth Ruiz. PHYSICAL ASSESSMENT Ambulatory to room. GENERAL / NEURO / PSYCH: Alert. Oriented X 4. Appears in no acute distress. HEENT: Mucous membranes are pink. RESPIRATORY: Respirations not labored. CVS: Normal sinus rhythm noted. SKIN: Skin is warm and dry. --16:44 Julieth Ruiz. NURSING PROGRESS NOTES Pulse oximeter and NIBP monitor placed on patient; monitor alarms on. Reassurance given to the patient. Two patient identifiers checked. Call light placed in reach. Side rails up x 1. Bed placed in lowest position. Brakes of bed on. Patient ready for evaluation- chart flagged. --16:44 Julieth Ruiz. DISPOSITION / DISCHARGE 17:20 07/29/16. Condition at departure: stable. No learning barriers present. Discharge instructions provided and reviewed with the patient and spouse. Reviewed medication(s) side effects, precautions, dosing and course information. Prescription(s) given to the patient. Reviewed need for increased fluid intake. Patient verbalized understanding. Written instructions provided in Venezuelan. ( Follow up with your PCP in three days. Follow up with neurology as recommended by your PCP. Increase fluids. Take ant inflammatory as needed. Warm Epsom salt soak may be helpful. Rest. Patient and spouse understood discharge, had no questions at this time. Patient reported being upset about the provider not treating his pain. Provider aware, no new orders at this time.). The patient was discharged by the physician. He was discharged home and accompanied by spouse. He left the Emergency Department ambulatory and via private vehicle. Spouse driving. FALL RISK ASSESSMENT: Fall risk assessment completed. No fall risk identified. --17:36 Julieth Ruiz 17:33 07/29/16. BP: deferred. HR: deferred. RR: deferred. O2 saturation: deferred. Temp: deferred. Pain level now deferred. --17:36 Julieth Ruiz. Locked/Released at 07/29/2016 18:09 by Julieth Ruiz,
--- NOTE | 2016-07-29 17:13 | ED CLINICAL REPORT ---
Clinical Report - Physicians/Mid Levels [facility] [address] [place] [address] 07/29/2016 16:25 Patient: KRISTI KLINE Time Seen: 16:35. Arrived- By private vehicle. Historian- patient. HISTORY OF PRESENT ILLNESS Chief Complaint: MUSCLE ACHES. This started today and is still present. It was abrupt in onset and has been constant. (the patient was seen here earlier today after having had a seizure. At time of discharge he was feeling well however now he is saying that he feels sore all over.). REVIEW OF SYSTEMS No chills, fever, sweats, calf pain or chest pain. No cough, difficulty breathing, pedal edema, palpitations or abdominal pain. No constipation, diarrhea, nausea, vomiting or urinary problems. The patient has had muscle aches and fatigue. All systems otherwise negative, except as recorded above. PAST HISTORY Medications: Keppra Oral. Allergies: None. SOCIAL HISTORY Regular alcohol use. Residence: [place]. FAMILY HISTORY Denies family medical history. ADDITIONAL NOTES The nursing notes have been reviewed. PHYSICAL EXAM Vital Signs: 07/29/2016 16:38 BP: 140/76. HR: 75. RR: 20. O2 saturation: 98%. Temp: 98.7 F. Pain level now: 10/10. Have been reviewed. Appearance: Alert. No acute distress. Eyes: Pupils equal, round and reactive to light. ENT: Pharynx normal. Neck: Neck supple. CVS: Normal heart rate and rhythm. Heart sounds normal. Respiratory: No respiratory distress. Breath sounds normal. Abdomen: No visible injury. Soft and nontender. Bowel sounds normal. No organomegaly. No mass. Back: Normal inspection. No CVA tenderness. Skin: Skin warm and dry. Normal skin color. Normal skin turgor. Extremities: Extremities exhibit normal ROM. No calf tenderness. No lower extremity edema. PROGRESS AND PROCEDURES Course of Care: Patient is stable. Patient/family counseled. Old medical records reviewed. Disposition: Discharged. Condition: stable. CLINICAL IMPRESSION Myalgias (status post generalized seizure). INSTRUCTIONS No driving or operating machinery until released. Rest. Drink plenty of fluids. Warnings: Further evaluation is necessary. Your Current Medications: CONTINUE TAKING THE FOLLOWING MEDICATIONS: Keppra Oral. Prescription Medications: Ibuprofen 600 mg tablets: take 1 tablet orally every 6 hours as needed for pain or stiffness. Dispense fifteen (15). No refill. Follow-up: Follow up with a neurologist- as recommended by your primary care physician. Understanding of the discharge instructions verbalized by patient and family. Follow-up with: [facility], , , [address] [facility], [facility], [id number] Follow up in four days. Call for an appointment. (Electronically signed by Dago Escobedo MD 07/30/2016 10:03)
--- NOTE | 2016-07-30 10:03 | ED MAR SUMMARY ---
..... Medication Administration Record [facility] [address] [place], [place] [id number] Patient: KRISTI KLINE Visit ID: [id number] 31y, M Weight: 74.8 kg Height/Length: 70 in BMI: 23.7 ALLERGIES: None
--- NOTE | 2016-07-30 10:03 | ED MED RECONCILIATION SUMMARY ---
Patient: KRISTI KLINE Medication Reconciliation Report [facility] VisitID: [id number] [address] [place] [address] 31y, M Registration Date/Time: 07/29/2016 Weight: 74.8 kg Height/Length: 70 in. BMI: 23.7 ALLERGIES: None The patient's Home Medications are listed below: CONTINUE TAKING THE FOLLOWING MEDICATIONS: Keppra Oral The source(s) of the original Home Medication information: patient The following Medications were given to the patient in the Emergency Department: None. The following Medications were prescribed to the patient: Ibuprofen 600 mg tablets: take 1 tablet orally every 6 hours as needed for pain or stiffness. Dispense fifteen (15). No refill. -- Dago Escobedo MD
--- NOTE | 2016-07-30 10:03 | ED MAR SUMMARY ---
..... Medication Administration Record [facility] [address] [place], [place] [id number] Patient: KRISTI KLINE Visit ID: [id number] 31y, M Weight: 74.8 kg Height/Length: 70 in BMI: 23.7 ALLERGIES: None
--- NOTE | 2016-07-30 10:03 | ED DISCHARGE INSTRUCTIONS ---
Patient: KRISTI KLINE General Instructions [facility] VisitID: [id number] [address] [place] [address] 31y, M Registration Date/Time: 07/29/2016 Myalgias (status post generalized seizure). INSTRUCTIONS No driving or operating machinery until released. Rest. Drink plenty of fluids. Warnings: Further evaluation is necessary. Your Current Medications: CONTINUE TAKING THE FOLLOWING MEDICATIONS: Keppra Oral. Prescription Medications: Ibuprofen 600 mg tablets: take 1 tablet orally every 6 hours as needed for pain or stiffness. Dispense fifteen (15). No refill. Follow-up: Follow up with a neurologist- as recommended by your primary care physician. Understanding of the discharge instructions verbalized by patient and family. Follow-up with: [facility], , , [address], [place], [id number] Follow up in four days. Call for an appointment. ADDITIONAL INFORMATION Myalgias Myalgia is the term for muscle aching, sometimes described by patients as "aching all over". It is not a disease but a symptom of an illness, such as the cold or flu. Any illness with a high fever can cause myalgias. Certain chronic or recurring medical illnesses can cause myalgias (such as Lupus and other collagen-vascular diseases). These chronic illnesses usually cause other serious symptoms in addition to the myalgias. Home Care: 1) Rest until you are feeling better. 2) You may use acetaminophen (Tylenol) or ibuprofen (Motrin, Advil) to control pain, unless another medicine was prescribed. [ NOTE : If you have chronic liver or kidney disease or ever had a stomach ulcer or GI bleeding, talk with your doctor before using these medicines.] 3) If you have a high fever, drink plenty of fluids to prevent dehydration (water, soft, drinks, juices, tea, soup, etc.). Follow Up with your doctor or as advised by our staff. If myalgia symptoms do not resolve in a few days or become recurrent, follow up with your doctor for further testing. Get Prompt Medical Attention if any of the following occur: Fever of 100.4F (38C) or higher, or as directed by your healthcare provider New joint pains New rash Severe headache, neck pain, drowsiness or confusion Ibuprofen Oral tablet What is this medicine? IBUPROFEN (eye BYOO proe fen) is a non-steroidal anti-inflammatory drug (NSAID). It is used for dental pain, fever, headaches or migraines, osteoarthritis, rheumatoid arthritis, or painful monthly periods. It can also relieve minor aches and pains caused by a cold, flu, or sore throat. How should I use this medicine? Take this medicine by mouth with a glass of water. Follow the directions on the prescription label. Take this medicine with food if your stomach gets upset. Try to not lie down for at least 10 minutes after you take the medicine. Take your medicine at regular intervals. Do not take your medicine more often than directed. A special MedGuide will be given to you by the pharmacist with each prescription and refill. Be sure to read this information carefully each time. Talk to your quality assurance project manager regarding the use of this medicine in children. Special care may be needed. What side effects may I notice from receiving this medicine? Side effects that you should report to your doctor or health hemodialysis patient care specialist as soon as possible: allergic reactions like skin rash, itching or hives, swelling of the face, lips, or tongue black or bloody stools, blood in the urine or in vomit breathing problems changes in vision chest pain general ill feeling or flu-like symptoms nausea or vomiting redness, blistering, peeling or loosening of the skin, including inside the mouth slurred speech or weakness on one side of the body stomach pain unexplained weight gain or swelling unusually weak or tired yellowing of eyes or skin Side effects that usually do not require medical attention (report to your doctor or health hemodialysis patient care specialist if they continue or are bothersome): constipation or diarrhea dizziness gas or heartburn stomach upset What may interact with this medicine? Do not take this medicine with any of the following medications: cidofovir ketorolac methotrexate pemetrexed This medicine may also interact with the following medications: alcohol aspirin diuretics lithium other drugs for inflammation like prednisone warfarin What if I miss a dose? If you miss a dose, take it as soon as you can. If it is almost time for your next dose, take only that dose. Do not take double or extra doses. Where should I keep my medicine? Keep out of the reach of children. Store at room temperature between 15 and 30 degrees C (59 and 86 degrees F). Keep container tightly closed. Throw away any unused medicine after the expiration date. What should I tell my health care provider before I take this medicine? They need to know if you have any of these conditions: asthma cigarette smoker drink more than 3 alcohol containing drinks a day heart disease or circulation problems such as heart failure or leg edema (fluid retention) high blood pressure kidney disease liver disease stomach bleeding or ulcers an unusual or allergic reaction to ibuprofen, aspirin, other NSAIDS, other medicines, foods, dyes, or preservatives or trying to get breast-feeding What should I watch for while using this medicine? Tell your doctor or healthcare professional if your symptoms do not start to get better or if they get worse. This medicine does not prevent heart attack or stroke. In fact, this medicine may increase the chance of a heart attack or stroke. The chance may increase with longer use of this medicine and in people who have heart disease. If you take aspirin to prevent heart attack or stroke, talk with your doctor or health hemodialysis patient care specialist. Do not take other medicines that contain aspirin, ibuprofen, or naproxen with this medicine. Side effects such as stomach upset, nausea, or ulcers may be more likely to occur. Many medicines available without a prescription should not be taken with this medicine. This medicine can cause ulcers and bleeding in the stomach and intestines at any time during treatment. Ulcers and bleeding can happen without warning symptoms and can cause . To reduce your risk, do not smoke cigarettes or drink alcohol while you are taking this medicine. You may get drowsy or dizzy. Do not drive, use machinery, or do anything that needs mental alertness until you know how this medicine affects you. Do not stand or sit up quickly, especially if you are an older patient. This reduces the risk of dizzy or fainting spells. This medicine can cause you to bleed more easily. Try to avoid damage to your teeth and gums when you brush or floss your teeth. You have been given the following additional information: Myalgias Ibuprofen Oral tablet No driving or operating machinery until released. Rest. (Electronically signed by Dago Escobedo MD 07/30/2016 10:03)
--- NOTE | 2016-07-30 10:03 | ED DISCHARGE INSTRUCTIONS ---
Patient: KRISTI KLINE General Instructions [facility] VisitID: [id number] [address] [place] [address] 31y, M Registration Date/Time: 07/29/2016 Myalgias (status post generalized seizure). INSTRUCTIONS No driving or operating machinery until released. Rest. Drink plenty of fluids. Warnings: Further evaluation is necessary. Your Current Medications: CONTINUE TAKING THE FOLLOWING MEDICATIONS: Keppra Oral. Prescription Medications: Ibuprofen 600 mg tablets: take 1 tablet orally every 6 hours as needed for pain or stiffness. Dispense fifteen (15). No refill. Follow-up: Follow up with a neurologist- as recommended by your primary care physician. Understanding of the discharge instructions verbalized by patient and family. Follow-up with: [facility], , , [address], [place], [address] Follow up in four days. Call for an appointment. ADDITIONAL INFORMATION Myalgias Myalgia is the term for muscle aching, sometimes described by patients as "aching all over". It is not a disease but a symptom of an illness, such as the cold or flu. Any illness with a high fever can cause myalgias. Certain chronic or recurring medical illnesses can cause myalgias (such as Lupus and other collagen-vascular diseases). These chronic illnesses usually cause other serious symptoms in addition to the myalgias. Home Care: 1) Rest until you are feeling better. 2) You may use acetaminophen (Tylenol) or ibuprofen (Motrin, Advil) to control pain, unless another medicine was prescribed. [ NOTE : If you have chronic liver or kidney disease or ever had a stomach ulcer or GI bleeding, talk with your doctor before using these medicines.] 3) If you have a high fever, drink plenty of fluids to prevent dehydration (water, soft, drinks, juices, tea, soup, etc.). Follow Up with your doctor or as advised by our staff. If myalgia symptoms do not resolve in a few days or become recurrent, follow up with your doctor for further testing. Get Prompt Medical Attention if any of the following occur: Fever of 100.4F (38C) or higher, or as directed by your healthcare provider New joint pains New rash Severe headache, neck pain, drowsiness or confusion Ibuprofen Oral tablet What is this medicine? IBUPROFEN (eye BYOO proe fen) is a non-steroidal anti-inflammatory drug (NSAID). It is used for dental pain, fever, headaches or migraines, osteoarthritis, rheumatoid arthritis, or painful monthly periods. It can also relieve minor aches and pains caused by a cold, flu, or sore throat. How should I use this medicine? Take this medicine by mouth with a glass of water. Follow the directions on the prescription label. Take this medicine with food if your stomach gets upset. Try to not lie down for at least 10 minutes after you take the medicine. Take your medicine at regular intervals. Do not take your medicine more often than directed. A special MedGuide will be given to you by the pharmacist with each prescription and refill. Be sure to read this information carefully each time. Talk to your pail bailer regarding the use of this medicine in children. Special care may be needed. What side effects may I notice from receiving this medicine? Side effects that you should report to your doctor or health care asst as soon as possible: allergic reactions like skin rash, itching or hives, swelling of the face, lips, or tongue black or bloody stools, blood in the urine or in vomit breathing problems changes in vision chest pain general ill feeling or flu-like symptoms nausea or vomiting redness, blistering, peeling or loosening of the skin, including inside the mouth slurred speech or weakness on one side of the body stomach pain unexplained weight gain or swelling unusually weak or tired yellowing of eyes or skin Side effects that usually do not require medical attention (report to your doctor or health care asst if they continue or are bothersome): constipation or diarrhea dizziness gas or heartburn stomach upset What may interact with this medicine? Do not take this medicine with any of the following medications: cidofovir ketorolac methotrexate pemetrexed This medicine may also interact with the following medications: alcohol aspirin diuretics lithium other drugs for inflammation like prednisone warfarin What if I miss a dose? If you miss a dose, take it as soon as you can. If it is almost time for your next dose, take only that dose. Do not take double or extra doses. Where should I keep my medicine? Keep out of the reach of children. Store at room temperature between 15 and 30 degrees C (59 and 86 degrees F). Keep container tightly closed. Throw away any unused medicine after the expiration date. What should I tell my health care provider before I take this medicine? They need to know if you have any of these conditions: asthma cigarette smoker drink more than 3 alcohol containing drinks a day heart disease or circulation problems such as heart failure or leg edema (fluid retention) high blood pressure kidney disease liver disease stomach bleeding or ulcers an unusual or allergic reaction to ibuprofen, aspirin, other NSAIDS, other medicines, foods, dyes, or preservatives or trying to get breast-feeding What should I watch for while using this medicine? Tell your doctor or healthcare professional if your symptoms do not start to get better or if they get worse. This medicine does not prevent heart attack or stroke. In fact, this medicine may increase the chance of a heart attack or stroke. The chance may increase with longer use of this medicine and in people who have heart disease. If you take aspirin to prevent heart attack or stroke, talk with your doctor or health care asst. Do not take other medicines that contain aspirin, ibuprofen, or naproxen with this medicine. Side effects such as stomach upset, nausea, or ulcers may be more likely to occur. Many medicines available without a prescription should not be taken with this medicine. This medicine can cause ulcers and bleeding in the stomach and intestines at any time during treatment. Ulcers and bleeding can happen without warning symptoms and can cause . To reduce your risk, do not smoke cigarettes or drink alcohol while you are taking this medicine. You may get drowsy or dizzy. Do not drive, use machinery, or do anything that needs mental alertness until you know how this medicine affects you. Do not stand or sit up quickly, especially if you are an older patient. This reduces the risk of dizzy or fainting spells. This medicine can cause you to bleed more easily. Try to avoid damage to your teeth and gums when you brush or floss your teeth. You have been given the following additional information: Myalgias Ibuprofen Oral tablet No driving or operating machinery until released. Rest. (Electronically signed by Dago Escobedo MD 07/30/2016 10:03)
--- NOTE | 2016-07-30 10:03 | ED MED RECONCILIATION SUMMARY ---
Patient: KRISTI KLNIE Medication Reconciliation Report [facility] VisitID: [id number] [address] [place] [address] 31y, M Registration Date/Time: 07/29/2016 Weight: 74.8 kg Height/Length: 70 in. BMI: 23.7 ALLERGIES: None The patient's Home Medications are listed below: CONTINUE TAKING THE FOLLOWING MEDICATIONS: Keppra Oral The source(s) of the original Home Medication information: patient The following Medications were given to the patient in the Emergency Department: None. The following Medications were prescribed to the patient: Ibuprofen 600 mg tablets: take 1 tablet orally every 6 hours as needed for pain or stiffness. Dispense fifteen (15). No refill. -- Dago Escobedo MD
== END 2016-07-29 17:20 | disposition home or self-care (01) ==
LOC: ED SRH 16:24
DX: M79.1 Myalgia (principal); Z79.899 Other long term (current) drug therapy; F17.200 Nicotine dependence, unspecified, uncomplicated